=== PATIENT | female | born 1965 | race Caucasian/White ===

== ENCOUNTER 2017-01-21 14:02 | Observation (INO) | payer SELFPAY ==
--- NOTE | ~2017-01-21 | HP ---
History And Physical [id number] [place]. [address] NAME: PATY FINK : 67 STATUS : ADM Amanda PAT#: [id number] AGE: 51 ADM/REG DATE : 01/21/17 MR#: [id number] REPORT SERV DATE: 01/22/17 DICTATED BY: BLANCA COUCH DATE: 01/22/17 REPORT STATUS : Draft TRANSCRIBED BY: MODReji DATE: 01/22/17 DATE OF ADMISSION: 01/21/2017 PRIMARY CARE PROVIDER: [facility]. CHIEF COMPLAINT: Fatigue and chest pain. HISTORY OF PRESENT ILLNESS: A pleasant 51-year-old white female, who looks older than her stated age with no known history of CAD, reports four to six weeks of fatigue, and one month of episodic chest pain. She describes the chest pain as midsternal in nature that radiates to her left arm with some associated diaphoresis. She denies shortness of breath, nausea, dizziness, or belching. At its most intense, the chest pain is rated a 10/10. At the time of interview in the [facility], she is pain free. She states most episodes last 5 to 15 minutes in duration. She does not take anything for these episodes. There are seemingly no pattern, no exertional component described. She denies any argumentative or confrontational events. The patient denies any personal history of myocardial infarction, stroke, DVT, or pulmonary embolus. The patient denies any recent fever or chills, no palpitations, no syncopal episodes. Denies PND or orthopnea. PAST MEDICAL HISTORY: 1. Ongoing tobacco abuse. 2. Unknown cholesterol status. 3. Denies hypertension or diabetes. PAST SURGICAL HISTORY: A right shoulder repair. SOCIAL HISTORY: She is with two children. She is unemployed, does not have an exercise routine. Smokes one pack per day for 35 plus years. Denies alcohol or illicits. FAMILY HISTORY: Mother of a stroke in her late 70s. REVIEW OF SYSTEMS: A 14-point review of systems performed, significant for HPI. No other contributory diagnoses identified. ALLERGIES: ALLERGY TO PENICILLIN AND CODEINE. HOME MEDICATIONS: Multivitamin daily, aspirin unknown strength daily, and sske-vme-gbpdhid sleep aids p.r.n. PHYSICAL EXAMINATION: BLOOD PRESSURE: Bilateral blood pressures on arrival, right 140/68, left 131/71, this morning 129/67. PULSE: 64, RESPIRATORY RATE: 15, TEMPERATURE: 97.6, O2 saturation 96% on room air. HEIGHT: 5 feet 5 inches, WEIGHT: 203 pounds. BMI of 34. History And Physical [place] [address] [place]. [address] NAME: PATY FINK : 67 STATUS : ADM Amanda PAT#: [id number] AGE: 51 ADM/REG DATE : 01/21/17 MR#: [id number] REPORT SERV DATE: 01/22/17 DICTATED BY: BLANCA COUCH DATE: 01/22/17 REPORT STATUS : Draft TRANSCRIBED BY: SOBEIDA DATE: 01/22/17 GENERAL: Cooperative, in no apparent distress. HEENT: Pupils 2 mm, sclera nonicteric. Nares patent. Moist mucous membranes. No xanthelasma. NECK: Trachea midline, no thyromegaly. No JVD. No bruits. LYMPH: No cervical lymphadenopathy. No supraclavicular lymphadenopathy. LUNGS: Wheeze, right lower lobe, clears with cough. CARDIOVASCULAR: Regular rate. No murmur, rub or gallop appreciated. EXTREMITIES: Clubbing of a finger tip. ABDOMEN: Soft, nontender, nondistended, normal bowel sounds auscultated throughout. No organomegaly. SKIN: Warm, dry extremities. No pallor, or cyanosis. PSYCHIATRIC: Appropriate affect. Alert, oriented x3. LABORATORY DATA: Troponin less than 0.02 twice. Potassium 4.0, BUN 5, creatinine 0.75, glucose 110, and magnesium 2.0. WBC 7.0, hemoglobin 14.9, hematocrit 42.8, and platelet count 270,000. EKG; sinus rhythm. ASSESSMENT AND PLAN: 1. Atypical chest pain in a patient with risk factors of possible family history and ongoing tobacco abuse. The patient has been observed in the CP[facility] overnight to rule out myocardial infarction with serial enzymes and serial EKGs and held n.p.o. We will proceed with MPI today. The patient will be discharged home if low risk, no ischemia. If anything suggestive of ischemia, Cardiology referral will be initiated. Otherwise, the patient will be asked to follow up with her PCP in one to two weeks with all studies being sent to that office. 2. Unknown cholesterol status. Check a fasting lipid panel. 3. Fatigue. Check a TSH and free T4. 4. Obesity. Diet and exercise discussed. 5. Tobacco abuse. Counseled regarding cessation for cardiovascular health and well being. CARMEL/SOBEIDA Blanca Couch, MSN, [employer] / [id number] CC: MONICO Weeks, [employer]
[2017-01-21 15:14] LABS: BASOPHILS 0.3 %; BASOPHILS ABSOLUTE 0.02 10/3/uL (0.0-0.16); EOSINOPHILS 2.7 %; EOSINOPHILS ABSOLUTE 0.19 10/3/uL (0.0-0.53); ER CBC TAT 0 Hrs 03 Mins; HEMATOCRIT 42.8 % (36.0-48.0); HEMOGLOBIN 14.9 g/dL (12.0-16.0); IMMATURE GRANULOCYTES 0.4 %; IMMATURE GRANULOCYTES ABSOLUTE 0.03 10/3/uL (0.0-0.11); LYMPHOCYTES 39.5 %; LYMPHOCYTES ABSOLUTE 2.78 10/3/uL (0.67-4.30); MEAN CORPUS HGB CONC 34.8 g/dL (32.0-36.0); MEAN PLATELET VOLUME 10.8 fL (9.2-13.0); MONOCYTES 5.4 %; MONOCYTES ABSOLUTE 0.38 10/3/uL (0.21-1.20); NEUTROPHILS 51.7 %; NEUTROPHILS ABSOLUTE 3.63 10/3/uL (2.02-8.40); PLATELET COUNT 270 10/3/uL (150-400); RBC DISTRIBUTION WIDTH 13.1 % (12.0-16.0); RED CELL COUNT 4.65 10/6/uL (4.0-5.6)
[2017-01-21 15:18] LABS: MANUAL DIFF NO %
[2017-01-21 15:24] LABS: PARTIAL THROMBO TIME 30.5 SEC (22.5-37.2); PROTIME (NOT ORD) 13.5 SEC (12.0-14.5)
[2017-01-21 15:31] LABS: BUN (BLOOD UREA NITROGEN) 5 MG/DL (6-23); CALCIUM, SERUM 8.9 MG/DL (8.5-10.4); CHEST PAIN PROFILE TAT 0 Hrs 20 Mins; CHLORIDE, SERUM 111 MMOL/L (96-112); CO2 (CARBON DIOXIDE) 25 MMOL/L (24-34); CREATININE 0.75 MG/DL (0.55-1.02); GFR AFRICAN AMERICAN 108 ML/MIN (>=60); GFR NON AFRICAN AMERICAN 93 ML/MIN (>=60); GLUCOSE, SERUM 110 MG/DL (60-99); SODIUM, SERUM 142 MMOL/L (135-148); TROPONIN I <0.02 NG/ML (<0.05)
[2017-01-21] MEDS ORDERED: ASPIRIN PO (18:20)
[2017-01-21] MEDS ORDERED: CENTRUM PO (18:20)
[2017-01-21] MEDS ORDERED: OTC SLEEP AID PO (18:21)
[2017-01-22 09:35] LABS: CHOL/HDL RATIO(NOT ORDER) 5.2 (0-5); CHOLESTEROL 198 MG/DL (< 200); FREE T4 0.73 NG/DL (0.76-1.46); HDL CHOLESTEROL 38 MG/DL (> 49); LDL CHOLESTEROL 130 MG/DL (< 130); NON-HDL CHOLESTEROL 160 MG/DL (< 160); TRIGLYCERIDE 152 MG/DL (< 150)
[2017-01-22 19:27] LABS: CHLORIDE, SERUM 111 MMOL/L (96-112); CO2 (CARBON DIOXIDE) 23 MMOL/L (24-34); POTASSIUM, SERUM 4.5 MMOL/L (3.5-5.3); SODIUM, SERUM 140 MMOL/L (135-148)
[2017-01-22 19:43] LABS: BUN (BLOOD UREA NITROGEN) 8 MG/DL (6-23); CALCIUM, SERUM 8.9 MG/DL (8.5-10.4); CREATININE 0.72 MG/DL (0.55-1.02); GFR AFRICAN AMERICAN 113 ML/MIN (>=60); GFR NON AFRICAN AMERICAN 98 ML/MIN (>=60); GLUCOSE, SERUM 101 MG/DL (60-99)
[2017-01-22] MEDS ORDERED: ASAB PO (21:26)
== END 2017-01-22 22:09 | disposition home or self-care (01) ==
LOC: ER 14:02 → CDU1 18:51 → CDU2 18:58
PROVIDERS: Clinical Nurse Specialist; Emergency Medicine
DX: I25.110 Atherosclerotic heart disease of native coronary artery with unstable angina pectoris (principal); E66.9 Obesity, unspecified; F17.210 Nicotine dependence, cigarettes, uncomplicated; Z88.0 Allergy status to penicillin; Z98.890 Other specified postprocedural states; Z88.5 Allergy status to narcotic agent; Z79.82 Long term (current) use of aspirin; Z79.899 Other long term (current) drug therapy
CPT/HCPCS: 71020; 78452; 80048; 80061; 83735; 84439; 84443; 84484; 84703; 85025; 85610; 85730; 93005; 93017; 93458; 99152; 99153; 99285; A9270-GY; A9502; C1769; C1887; C1894; G0378; J1250; J2250; J3010; Q9967